=== PATIENT | female | born 1995 | race Two or more races ===

== ENCOUNTER 2018-10-22 18:10 | Emergency (ER) | payer BC ==
[~2018-10-22] VITALS: Ht 175.3 cm; Wt 77.1 kg
[2018-10-22 18:31] VITALS: BP 136/72
[2018-10-22] MEDS ORDERED: IV NORMAL SALINE 1000ML BAG 1,000 ML IV ONE (19:00)
--- NOTE | 2018-10-22 19:18 | PHYS DOC ---
Past Medical History Past Medical History: Anxiety Past Surgical History: No Surgical History Alcohol Use: Occasionally Drug Use: Marijuana Adult General Chief Complaint Chief Complaint: ANXIETY/PANIC ATTACK HPI HPI 23-year-old female presents to ER via POV from her workplace for anxiety attack. Approximately 30 minutes prior to arrival to ER patient was working at a local car dealership when she had onset of increased anxiety. She was hyperventilating at time of initial exam. She has contraction in bilateral hands reporting her face and hands are tingling and numb. Nonrebreather mask was applied for hyperventilation and breathing pattern was redirected with emotional support by this provider. Patient reports she has recently moved and her family lives approximately 6 hours away and so her anxiety has been increasing over the past several weeks. Patient reports previous history of anxiety and depression but states she has been off of her medications for the past year as she had improved. Patient states she has had some financial issues as well with recent move. Patient denies any suicidal ideations or active plans. Review of Systems Review of Systems Constitutional: Denies fever. Reports fatigue Eyes: Denies change in visual acuity, redness, or eye pain [] HENT: Denies nasal congestion or sore throat [] Respiratory: Denies cough. Reports felt SOA Cardiovascular: Reports chest tightness w/onset of anxiety GI: Denies abdominal pain, nausea, vomiting, bloody stools or diarrhea [] : Denies dysuria or hematuria [] Musculoskeletal: Denies back pain or joint pain [] Integument: Denies rash or skin lesions [] Neurologic: Denies headache, focal weakness or sensory changes. Reports dizziness with onset of anxiety/rapid breathing. Reports numbness/tingling in fingers/hands with contraction of hands Endocrine: Denies polyuria or polydipsia [] Psych: Reports hx of anxiety with increased stressors at work/home- denies SI All other systems were reviewed and found to be within normal limits, except as documented in this note. Current Medications Current Medications Current Medications Medications (Trade) Dose Ordered Sig/Sondra Start Time Stop Time Status Last Admin Dose Admin Lorazepam (Ativan) 0.5 mg 1X ONCE 10/22/18 20:15 10/22/18 20:16 DC 10/22/18 20:37 0.5 MG Sodium Chloride 1,000 ml @ 1,000 mls/hr 1X ONCE 10/22/18 19:00 10/22/18 20:05 DC 10/22/18 19:00 1,000 MLS/HR Allergies Allergies Allergies Coded Allergies Type Severity Reaction Last Updated Verified No Known Drug Allergies 10/22/18 No Physical Exam Physical Exam Constitutional: Well developed, well nourished, moderate distress on arrival- hyperventilating with bilat. fingers contracted, non-toxic appearance. Emotional support and redirection on breathing was provided at time of pt's arrival- pt was placed on NRB mask without O2 which w/redirection of breathing and mask pt had rapid improvement in sxs and was much more calm- less anxious allowing exam HENT: Normocephalic, atraumatic, bilateral ears normal, oropharynx moist, no o ral exudates, nose normal. [] Eyes: PERRLA, no nystagmus, conjunctiva normal, no discharge. [] Neck: Normal range of motion, no tenderness, supple, no stridor. [] Cardiovascular: Heart rate regular rhythm, no murmur [] Lungs & Thorax: Bilateral breath sounds clear to auscultation- resp. initially rapid- following redirection on breathing resp. slowed and were equal Abdomen: Bowel sounds normal, soft, no tenderness Skin: Warm, dry, no erythema, no rash. [] Back: No tenderness, no CVA tenderness. [] Extremities: No tenderness, no cyanosis, no clubbing, ROM intact, no edema. [] Neurologic: Alert and oriented X 3, normal motor function, normal sensory function, no focal deficits noted. [] Psychologic: Affect normal, judgement normal- anxious on arrival- improved following discussion/redirection/emotional support. Denies SI. Reports increased stressors. Current Patient Data Vital Signs Lab Values Laboratory Tests Test 10/22/18 19:20 10/22/18 19:40 10/22/18 19:53 10/22/18 19:55 Sodium Level 143 mmol/L (136-145) Potassium Level 3.9 mmol/L (3.5-5.1) Chloride Level 106 mmol/L (98-107) Carbon Dioxide Level 25 mmol/L (21-32) Anion Gap 12 (6-14) Blood Urea Nitrogen 8 mg/dL (7-20) Creatinine 0.7 mg/dL (0.6-1.0) Estimated GFR (Cockcroft-Gault) 104.6 Glucose Level 89 mg/dL (70-99) Calcium Level 9.3 mg/dL (8.5-10.1) White Blood Count 8.1 x10^3/uL (4.0-11.0) Red Blood Count 4.54 x10^6/uL (3.50-5.40) Hemoglobin 14.0 g/dL (12.0-15.5) Hematocrit 41.1 % (36.0-47.0) Mean Corpuscular Volume 91 fL (79-100) Mean Corpuscular Hemoglobin 31 pg (25-35) Mean Corpuscular Hemoglobin Concent 34 g/dL (31-37) Red Cell Distribution Width 13.3 % (11.5-14.5) Platelet Count 191 x10^3/uL (140-400) Neutrophils (%) (Auto) 61 % (31-73) Lymphocytes (%) (Auto) 29 % (24-48) Monocytes (%) (Auto) 6 % (0-9) Eosinophils (%) (Auto) 3 % (0-3) Basophils (%) (Auto) 1 % (0-3) Neutrophils # (Auto) 4.9 x10^3uL (1.8-7.7) Lymphocytes # (Auto) 2.4 x10^3/uL (1.0-4.8) Monocytes # (Auto) 0.5 x10^3/uL (0.0-1.1) Eosinophils # (Auto) 0.3 x10^3/uL (0.0-0.7) Basophils # (Auto) 0.0 x10^3/uL (0.0-0.2) Urine Collection Type Unknown Urine Color Straw Urine Clarity Clear Urine pH 7.5 Urine Specific Duncan <=1.005 Urine Protein Negative mg/dL (NEG-TRACE) Urine Glucose (UA) Negative mg/dL (NEG) Urine Ketones (Stick) Negative mg/dL (NEG) Urine Blood Moderate (NEG) Urine Nitrite Negative (NEG) Urine Bilirubin Negative (NEG) Urine Urobilinogen Dipstick 0.2 mg/dL (0.2 mg/dL) Urine Leukocyte Esterase Negative (NEG) Urine RBC Rare /HPF (0-2) Urine WBC 0 /HPF (0-4) Urine Squamous Epithelial Cells Few /LPF Urine Bacteria Few /HPF (0-FEW) POC Urine HCG, Qualitative Hcg negative (Negative) Laboratory Tests 10/22/18 19:40 Laboratory Tests 10/22/18 19:20 EKG EKG [] Radiology/Procedures Radiology/Procedures [] Course & Med Decision Making Course & Med Decision Making Pertinent Labs reviewed. (See chart for details) 2020: Patient was evaluated in the ER following an anxiety attack while she was at work just prior to arrival to ER. Patient had labs drawn as well as a UA as she had been having some intermittent abdominal pain. Labs were unremarkable and UA had moderate blood but patient is on her menstrual cycle negative for infection and UCG was negative. At this time patient is smiling and calm with friends at bedside. Patient states she is feeling much better does continue to have heaviness in bilateral upper and lower extremities but has full range of motion and is PMS intact in all extremities. Patient continues to deny any SI. Pt has not received her Ativan dose as of yet and her anxiety has improved. Pt is still requesting dose of Ativan prior to d/c as she feels that will help allow her to rest at home. Discussed anxiety and need for f/u with PCP and/or therapist to further discuss stressors. Suicide discussion had with pt and she was encouraged to seek immediate help/assist with any thoughts. Education provided on s&s to return to ER for and d/c instructions were discussed. Dragon Disclaimer Dragon Disclaimer This electronic medical record was generated, in whole or in part, using a voice recognition dictation system. Departure Departure Impression: Primary Impression: Anxiety Disposition: 01 HOME, SELF-CARE Condition: STABLE Patient Instructions: Anxiety and Panic Attacks Additional Instructions: As discussed you should get established with a primary doctor to further discuss your anxiety. Drink plenty of fluids and eat well balanced meals. EMIL TORREZ APRN Oct 22, 2018 19:18
[2018-10-22 19:45] LABS: CALCIUM 9.3 mg/dL (8.5-10.1); CREATININE 0.7 mg/dL (0.6-1.0); GFR 104.6; POTASSIUM 3.9 mmol/L (3.5-5.1)
[2018-10-22 19:49] LABS: BASO % 1 % (0-3); EOS # 0.3 x10^3/uL (0.0-0.7); EOS % 3 % (0-3); HEMATOCRIT 41.1 % (36.0-47.0); LYMPH # 2.4 x10^3/uL (1.0-4.8); LYMPH % 29 % (24-48); MEAN CORPUSCULAR HEMOGLOBIN 31 pg (25-35); MEAN CORPUSCULAR HGB CONC 34 g/dL (31-37); MEAN CORPUSCULAR VOLUME 91 fL (79-100); MONO # 0.5 x10^3/uL (0.0-1.1); MONO % 6 % (0-9); NEUT # 4.9 x10^3uL (1.8-7.7); NEUT % 61 % (31-73); PLATELET COUNT 191 x10^3/uL (140-400); RED BLOOD COUNT 4.54 x10^6/uL (3.50-5.40); RED CELL DISTRIBUTION WIDTH 13.3 % (11.5-14.5); WHITE BLOOD COUNT 8.1 x10^3/uL (4.0-11.0)
[2018-10-22 20:05] LABS: BILIRUBIN,URINE NEGATIVE (NEG); CLARITY,URINE CLEAR; NITRITE,URINE NEGATIVE (NEG); PH,URINE 7.5; PROTEIN,URINE NEGATIVE (NEG-TRACE); UROBILINOGEN,URINE 0.2 mg/dL (0.2 mg/dL)
[2018-10-22 20:12] LABS: COLOR,URINE STRAW
[2018-10-22 20:14] LABS: BACTERIA,URINE FEW /HPF (0-FEW); RBC,URINE RARE /HPF (0-2); SQUAMOUS EPITHELIAL CELL,UR FEW /LPF; WBC,URINE 0 /HPF (0-4)
[2018-10-22] MEDS ORDERED: LORazepam 1 MG TABLET PO ONE (20:15)
== END 2018-10-22 20:57 | disposition home or self-care (01) ==
LOC: ER 18:10
DX: F41.9 Anxiety disorder, unspecified (principal); R06.4 Hyperventilation; R20.2 Paresthesia of skin; F32.9 Major depressive disorder, single episode, unspecified
CPT/HCPCS: 36415; 80048; 81001; 81025; 85025; 99284; J7030